=== PATIENT | female | born 1955 | race Caucasian/White ===

== ENCOUNTER 2016-11-19 09:37 | Outpatient (CLI) | payer BC, OTHER | END 2016-11-19 23:59 | DX: E55.9 Vitamin D deficiency, unspecified (principal); E11.9 Type 2 diabetes mellitus without complications; E03.9 Hypothyroidism, unspecified; E78.5 Hyperlipidemia, unspecified ==

== ENCOUNTER 2017-02-18 10:22 | Outpatient (CLI) | payer BC ==
--- NOTE | 2017-02-19 12:41 | Mammography Report ---
DIGITAL SCREENING MAMMOGRAM: 02/18/2017 CLINICAL INDICATION: A 61-year-old with history of late childbearing for screening. COMPARISON: 04/2015, 08/2012, 05/2011, 07/2009, 06/2009, 03/2008, 02/2007 TECHNIQUE: Routine CC and MLO projections were obtained of the breasts. FINDINGS: The breasts again demonstrate scattered fibroglandular parenchyma bilaterally. Asymmetric parenchyma in the left axillary tail is stable. Coarse and punctate, typically benign calcification s are present. No suspicious masses, clustered microcalcifications, or regions of architectural dist ortion are identified. IMPRESSION: BENIGN FINDINGS. RECOMMENDATION: Routine annual screening unless otherwise clinically indicated. BIRADS CATEGORY 2 - BENIGN FINDINGS. STANDARD QUALIFYING STATEMENTS 1. This examination was reviewed with the aid of Computer-Aided Detection (CAD). 2. A negative or benign imaging report should not delay biopsy if clinically suspicious findings are present. Consider surgical consultation if warranted. More than 5% of cancers are not identified by i maging. 3. Dense breasts may obscure an underlying neoplasm. JOB #: [id number] EXT JOB #:[id number]
== END 2017-02-18 10:23 | disposition home or self-care (01) ==
LOC: DI 10:22
PROVIDERS: ATTEND Family Medicine
DX: Z12.31 Encounter for screening mammogram for malignant neoplasm of breast (principal)
CPT/HCPCS: 77067

== ENCOUNTER 2017-05-07 08:00 | Outpatient (CLI) | payer BC ==
[2017-05-07 13:41] LABS: HEMOGLOBIN A1C 1.13 g/dL
== END 2017-05-07 08:01 | disposition home or self-care (01) ==
LOC: LAB.WCP 08:00
PROVIDERS: ATTEND Family Medicine
DX: E11.9 Type 2 diabetes mellitus without complications (principal); E03.9 Hypothyroidism, unspecified
CPT/HCPCS: 36415; 83036; 84443

== ENCOUNTER 2017-05-22 15:28 | Outpatient (CLI) | payer BC ==
--- NOTE | 2017-05-22 17:13 | XRAY Report ---
TWO-VIEW RIGHT CALCANEUS: 05/22/2017 CLINICAL INDICATION: Pain, edema. FINDINGS: Frontal and lateral views of the right calcaneus demonstrate no evidence of fracture. The joint spaces are preserved. No radiopaque foreign body is seen in the soft tissues. There is a sma ll posterior calcaneal spur present. IMPRESSION: NO EVIDENCE OF FRACTURE. SMALL POSTERIOR CALCANEAL SPUR. JOB #: [id number] EXT JOB #:[id number]
== END 2017-05-22 15:29 | disposition home or self-care (01) ==
LOC: DI 15:28
PROVIDERS: ATTEND Podiatrist
DX: M77.31 Calcaneal spur, right foot (principal)

== ENCOUNTER 2017-07-08 15:03 | Outpatient (CLI) | payer BC ==
--- NOTE | 2017-07-09 10:05 | MRI Report ---
EXAM: RIGHT ANKLE/HINDFOOT MRI WITHOUT CONTRAST EXAM DATE: 07/08/2017 03:42 PM. CLINICAL HISTORY: Right Achilles tendinitis. COMPARISON: None. TECHNIQUE: Multiplanar, multisequence T1-weighted and fluid-sensitive sequences of the ankle/hindfoot without contrast. Other: None. FINDINGS: Bones: No fractures or subluxations. No marrow edema. No bone lesions. Articular Cartilage: Unremarkable. Ligaments: The anterior and posterior tibiofibular, anterior and posterior talofibular, and calcaneof ibular ligaments are intact. The deep and superficial deltoid and spring ligaments are intact. Anterior Tendons: The tibialis anterior, extensor hallucis longus, and extensor digitorum longus tend ons are unremarkable. Medial Tendons: The tibialis posterior, flexor digitorum longus, and flexor hallucis longus tendons a re unremarkable. Lateral Tendons: The peroneus brevis and longus are unremarkable. Achilles Tendon: Mild mid to distal Achilles tendinosis. No tear. Musculature: No edema or fatty atrophy. Other: No abnormal joint effusions. Trace amount of fluid at the retrocalcaneal bursa. The contents o f the sinus tarsi and tarsal tunnel are unremarkable. No plantar fasciitis. The subcutaneous tissues are unremarkable. IMPRESSION: 1. Mild mid to distal Achilles tendinosis. 2. Trace amount of fluid at the retrocalcaneal bursa. [facility] MUSCULOSKELETAL RADIOLOGY SECTION Referring Provider Line: [phone] SITE ID: [id number]
== END 2017-07-08 15:04 | disposition home or self-care (01) ==
LOC: DI 15:03
PROVIDERS: ATTEND Podiatrist
DX: M76.61 Achilles tendinitis, right leg (principal)

== ENCOUNTER 2017-08-03 09:52 | Outpatient (CLI) | payer BC ==
[2017-08-03 14:16] LABS: HEMOGLOBIN A1C 0.79 g/dL
== END 2017-08-03 09:53 | disposition home or self-care (01) ==
LOC: LAB.WCP 09:52
PROVIDERS: ATTEND Family Medicine
DX: E11.9 Type 2 diabetes mellitus without complications (principal); E03.9 Hypothyroidism, unspecified
CPT/HCPCS: 36415; 83036; 84443

== ENCOUNTER 2017-11-09 09:39 | Outpatient (CLI) | payer BC ==
[2017-11-09 13:09] LABS: CREATININE 0.8 mg/dL (0.4-1.0)
[2017-11-09 13:20] LABS: HB2 TOTAL 15.4 g/dL; HEMOGLOBIN A1C 1.15 g/dL
== END 2017-11-09 09:40 | disposition home or self-care (01) ==
LOC: LAB.WCP 09:39
PROVIDERS: ATTEND Family Medicine
DX: E11.9 Type 2 diabetes mellitus without complications (principal); E03.9 Hypothyroidism, unspecified
CPT/HCPCS: 36415; 80048; 83036; 84443

== ENCOUNTER 2018-01-11 20:10 | Emergency (ER) | payer BC ==
--- NOTE | 2018-01-11 22:13 | XRAY Preliminary Report ---
Exam: XR ANKLE 3 VIEW RT IMPRESSION: Postsurgical changes in the posterior soft tissues of the ankle and the region of the Ach illes as well as post surgical changes of the calcaneus without evidence of complication. [facility] SITE ID: [id number]
--- NOTE | 2018-01-11 22:23 | XRAY Report ---
EXAM: RIGHT ANKLE RADIOGRAPHY EXAM DATE: 01/11/2018 09:32 PM. CLINICAL HISTORY: Mild ankle trauma post surgery. COMPARISON: MR ankle without contrast 07/08/2017 calcaneus radiograph 05/22/2017. TECHNIQUE: 3 views. FINDINGS: Overlying material obscures fine bony detail. Bones: No displaced fracture. No suspicious focal osseous lesion with increased sclerosis in the maxine ining posterior portion of the calcaneus including the tuberosity, though this may be artifactual due to overlying splint. Postsurgical changes are present at these superior posterior calcaneus. Joints: No joint effusion. No malalignment. Soft Tissues: Postsurgical changes with sutures versus wires present left and right parasagittal post erior ankle in the region of the Achilles tendon. No unexpected retained radiopaque foreign body. IMPRESSION: Postsurgical changes in the posterior soft tissues of the ankle in the region of the Achi lles as well as post surgical changes of the calcaneus without evidence of complication. [facility] Referring Provider Line: [phone] SITE ID: [id number]
[2018-01-11] MEDS ORDERED: oxyCOD/ACETAMIN 5 MG/325 MG TABLET PO STA (22:53)
--- NOTE | 2018-01-11 22:57 | ED Physician Documentation ---
PD HPI LOWER EXT INJURY - Stated complaint Stated Complaint: R ANKLE PX/POST SURG - Chief complaint Chief Complaint: Ext Problem - History obtained from History obtained from: Patient, Family - History of Present Illness PD HPI LOW EXT INJURY LOCATION: Right, Ankle Type of injury: Fall, Twist Where injury occurred: Home Timing - onset: Today Timing - details: Abrupt onset Improved by: Rest, Immobilization Worsened by: Moving, Palpating Similar symptoms before: Work up / diagnostics, Treatment Recently seen: Surgery - Additional information Additional information: patient is a 62 year old female presenting to the emergency department for right sided ankle pain. Patient recently had surgery on her ankle. Today patient tripped on a vaccum in her house hurting her ankle. patient is in a cast so couldn't really observe the ankle. 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 HEENT: Other - Present Medications Home Medications: Ambulatory Orders Medication Instructions Recorded Confirmed Levothyroxine [Synthroid] 50 mcg ORAL DAILY 11/22/14 11/22/14 Insulin Glargine/Lixisenatide 50 units SQ DAILY 01/11/18 01/11/18 [Soliqua 100 Unit-33 Mcg/ml Pen] - Allergies Allergies/Adverse Reactions: Allergies Allergy/AdvReac Type Severity Reaction Status Date / Time azathioprine Allergy Hives Verified 01/11/18 20:30 choline fenofibrate * Allergy Hives Verified 01/11/18 20:30 [From Trilipix] ezetimibe [From Zetia] Allergy Hives Verified 01/11/18 20:30 glipizide Allergy Hives Verified 01/11/18 20:30 leflunomide Allergy Hives Verified 01/11/18 20:30 lisinopril Allergy Hives Verified 01/11/18 20:30 losartan [Losartan] Allergy Hives Verified 01/11/18 20:30 metformin Allergy Hives Verified 01/11/18 20:30 niacin Allergy Hives Verified 01/11/18 20:30 pitavastatin calcium * Allergy Hives Verified 01/11/18 20:30 [From Livalo] Ylirkab-Tce-Jaa Reductase Allergy Hives Verified 01/11/18 20:30 Inhibitor Sulfa (Sulfonamide Allergy Hives Verified 01/11/18 20:30 Antibiotics) zolpidem tartrate * Allergy Hives Verified 01/11/18 20:30 [From Ambien] - Social History Does the pt smoke?: No Smoking Status: Never smoker Does the pt drink ETOH?: No Does the pt have substance abuse?: Yes Substance Use and Type: Marijuana - Immunizations Immunizations are current?: Yes - POLST Patient has POLST: No PD ED PE NORMAL - Vitals Vital signs reviewed: Yes - General General: Alert and oriented X 3 - HEENT HEENT: Atraumatic - Cardiac Cardiac: RRR - Respiratory Respiratory: No respiratory distress - Abdomen Abdomen: Non distended - Neuro Neuro: Alert and oriented X 3 Eye Opening: Spontaneous PD ED PE EXPANDED - General General: Alert, In Pain - Extremities Extremities: Motor intact, Sensory intact, Vascular intact. No: Decreased/ absent pulse Results - Vitals Vitals: Vital Signs - 24 hr 01/11/18 01/11/18 01/11/18 20:20 21:13 23:36 Temperature 36.6 C Heart Rate 96 69 88 Respiratory 17 20 16 Rate Blood Pressure 146/77 H 146/74 H 139/86 H O2 Saturation 99 97 95 Oxygen O2 Source Room air - Rads (name of study) x-ray, ankle Radiology: Final report received (post operative changes, no acute displacement) PD MEDICAL DECISION MAKING - ED course Complexity details: reviewed old records, reviewed results, re-evaluated patient , considered differential, d/w patient, d/w family ED course: patient was seen and examined at bedside. Imaging was ordered. When patient returned from imaging the laura bandages were taken off the but the cast could not be removed. Pulses were present, and patient was neurovascularly intact. Patient had no acute fracture or dislocation. patient was treated with percocet for pain and was stable for discharge with outpatient follow up. Departure - Departure Disposition: 01 Home, Self Care Clinical Impression: Acute ankle pain Condition: Good Instructions: Pain Management Post Surg Follow-Up: primary,care provider [Other] - Within 3 Days Comments: Your x-rays today showed no acute abnormalities. You should elevate your foot and continue with your pain management. You should call your ankle doctor tomorrow to schedule a follow up appointment. You may return to the emergency department at any time for new, worsening or uncontrollable symptoms. Discharge Date/Time: 01/11/18 23:36
[2018-01-11 23:37] VITALS: BP 139/86
== END 2018-01-11 23:36 | disposition home or self-care (01) ==
LOC: ED 20:10
DX: M25.571 Pain in right ankle and joints of right foot (principal); Z98.890 Other specified postprocedural states; Z91.81 History of falling; E03.9 Hypothyroidism, unspecified; E78.00 Pure hypercholesterolemia, unspecified; E11.9 Type 2 diabetes mellitus without complications; Z79.4 Long term (current) use of insulin
CPT/HCPCS: 73610; 99283; A9270

== ENCOUNTER 2018-01-26 08:00 | Outpatient (CLI) | payer BC ==
[2018-01-26 13:15] LABS: ALBUMIN 4.3 g/dL (3.2-5.5); ALBUMIN/GLOBULIN RATIO 1.3 (1.0-2.2); ALKALINE PHOSPHATASE 81 IU/L (42-121); ALT ALANINE AMINOTRANSFERASE 22 IU/L (10-60); AST ASPARTATE AMINOTRANSFERASE 20 IU/L (10-42); BILIRUBIN,TOTAL 0.5 mg/dL (0.2-1.0); BUN - BLOOD UREA NITROGEN 15 mg/dL (6-20); CALCIUM 9.3 mg/dL (8.5-10.3); CARBON DIOXIDE - CO2 23 mmol/L (21-32); CHLORIDE 102 mmol/L (101-111); CREATININE 0.8 mg/dL (0.4-1.0); GFR - MDRD 73 (>89); GLUCOSE 150 mg/dL (70-100); SODIUM 134 mmol/L (135-145); TOTAL PROTEIN 7.7 g/dL (6.7-8.2)
[2018-01-26 19:47] LABS: HB2 TOTAL 16.3 g/dL; HEMOGLOBIN A1C 0.97 g/dL; HEMOGLOBIN A1C % 7.6 % (4.6-6.2)
== END 2018-01-26 08:01 | disposition home or self-care (01) ==
LOC: LAB.WCP 08:00
PROVIDERS: ATTEND Family Medicine
DX: E11.9 Type 2 diabetes mellitus without complications (principal); E03.9 Hypothyroidism, unspecified
CPT/HCPCS: 36415; 80053; 83036; 84443

== ENCOUNTER 2018-07-29 14:47 | Outpatient (CLI) | payer BC ==
--- NOTE | 2018-07-30 09:13 | DEXA Report ---
Reason: POSTMENOPAUSAL STATUS Procedure Date: 07/29/2018 Accession Number: [id number] / [id number] Procedure: DEX - Dexa Spine and/or Hip CPT Code: FULL RESULT: EXAM: Dexa Spine and/or Hip DATE: 07/29/2018 3:19 PM CLINICAL HISTORY: POSTMENOPAUSAL STATUS TECHNIQUE: Dual energy x-ray absorptiometry (DXA) was performed on a [employer] System. Regions measured are the AP Spine, femoral neck, and if needed forearm. COMPARISON: None. In accordance with the International Society for Clinical Densitometry (ISCD) guidelines, data from previous exams may be reanalyzed using current recommendations and techniques. This is done to allow a more accurate basis for comparison with the current study. FINDINGS: The data for the lumbar spine is as follows: BMD (g/cm/cm) T-SCORE Z-SCORE REGION L1 1.445 2.6 3.0 L2 1.595 3.3 3.7 L3 1.733 4.4 4.8 L4 1.606 3.4 3.7 TOTAL 1.602 3.5 3.9 NOTE: All evaluable vertebrae are used for classification The data for the hip is as follows: BMD (g/cm/cm) T-SCORE Z-SCORE REGION Neck 1.173 1.0 1.7 TOTAL 1.237 1.8 2.1 NOTE: The femoral neck or total proximal femur, whichever is lowest, is used for classification. IMPRESSION: THE WHO CLASSIFICATION BASED ON THE INTERNATIONAL REFERENCE STANDARD IS NORMAL. THE FRACTURE RISK IS NOT INCREASED. RECOMMENDATION: Patients with diagnosis of osteoporosis or osteopenia should have regular bone mineral density assessment. For those eligible for Medicare, routine testing is allowed once every 2 years. Testing frequency can be increased for patients who have rapidly progressing disease or for those who are receiving medical therapy to restore bone mass. COMMENT: World Health Organization (WHO) definitions for osteoporosis and osteopenia: NORMAL BMD: T-score at -1.0 or higher, fracture risk is low OSTEOPENIA BMD: T-score between -1.0 and -2.5, fracture risk is increased. OSTEOPOROSIS BMD: T-score at -2.5 or lower, fracture risk is high. National Osteoporosis Foundation recommends: 1. Obtain adequate dietary calcium (at least 1200 mg per day) and vitamin D (400-800 international units per day). 2. Participate, as appropriate, in regular weightbearing and muscle-strengthening exercise. 3. Avoid tobacco use and reduce alcohol and caffeine intake. 4. For more detailed information see the website at www.NOF.org.
== END 2018-07-29 14:48 | disposition home or self-care (01) ==
LOC: DI 14:47
PROVIDERS: ATTEND Family Medicine
DX: Z78.0 Asymptomatic menopausal state (principal)
CPT/HCPCS: 77080

== ENCOUNTER 2018-08-09 21:05 | Outpatient (CLI) | payer BC ==
--- NOTE | 2018-08-09 22:41 | Ultrasound Report ---
Reason: ABDOMINAL PAIN,RT UPPER QUAD Procedure Date: 08/09/2018 Accession Number: [id number] / [id number] Procedure: US - Abdomen Complete CPT Code: FULL RESULT: EXAM: ABDOMEN ULTRASOUND. EXAM DATE: 08/09/2018 09:50 PM. CLINICAL HISTORY: Right upper quadrant abdominal pain. COMPARISON: None. TECHNIQUE: Real-time scanning was performed with static images obtained. FINDINGS: Liver: Moderate increased liver echogenicity. No suspicious focal liver lesion noted. Liver measures 18.9 cm. Main portal vein flow: Hepatopetal. Gallbladder: No gallstones, wall thickening, or sonographic Cortés's sign. Biliary System: Common bile duct measures 5.5 mm. No intrahepatic or extrahepatic ductal dilatation. Pancreas: Visualized portion is unremarkable. Kidneys: Right: 9.2 cm longitudinally. Lower pole of the right kidney obscured by bowel gas. No contour-deforming mass, stones, or hydronephrosis. Left: 11.7 cm longitudinally. Normal. No contour-deforming mass, stones, or hydronephrosis. Spleen: 11.9 cm. Heterogeneous appearance of the spleen. Aorta and Inferior Vena Cava: Unremarkable. Other: None. IMPRESSION: 1. No gallstones, cholecystitis, or biliary ductal dilation. 2. Moderate hepatic steatosis and hepatomegaly. 3. No kidney stone or hydronephrosis demonstrated at this time. [facility]
== END 2018-08-09 21:06 | disposition home or self-care (01) ==
LOC: DI 21:05
PROVIDERS: ATTEND Family Medicine
DX: K76.0 Fatty (change of) liver, not elsewhere classified (principal); R10.11 Right upper quadrant pain
CPT/HCPCS: 76700

== ENCOUNTER 2018-08-23 08:55 | Outpatient (CLI) | payer BC ==
--- NOTE | 2018-08-25 09:20 | Mammography Report ---
Reason: SCREENING MAMMO Procedure Date: 08/23/2018 Accession Number: [id number] / [id number] Procedure: TYSHAWN - Screening Mammo w/Drew CPT Code: FULL RESULT: EXAM: Screening Mammo w/Drew DATE: 08/23/2018 9:29 AM CLINICAL HISTORY: Screening encounter. History of late childbearing. History of mole removal from the right breast. TECHNIQUE: Bilateral CC and MLO views were obtained. A left laterally exaggerated CC view was obtained. COMPARISON: 02/18/2017 through 09/30/2013. FINDINGS: The breasts demonstrate scattered fibroglandular densities bilaterally. There are bilateral coarse typically benign calcifications. No suspicious masses, clustered microcalcifications, or regions of architectural distortion are identified. IMPRESSION: Benign findings RECOMMENDATION: Routine annual screening unless otherwise clinically indicated. BIRADS CATEGORY 2: Benign findings STANDARD QUALIFYING STATEMENTS: 1. This examination was not reviewed with the aid of Computer-Aided Detection (CAD). 2. A negative or benign imaging report should not preclude biopsy if clinically suspicious findings are present. 3. Dense breasts may obscure an underlying neoplasm. 4. This examination was reviewed with the aid of 3D breast imaging (tomosynthesis).
== END 2018-08-23 08:56 | disposition home or self-care (01) ==
LOC: DI 08:55
DX: Z12.31 Encounter for screening mammogram for malignant neoplasm of breast (principal)
CPT/HCPCS: 77063; 77067

== ENCOUNTER 2019-04-07 17:48 | Emergency (ER) | payer BC ==
[2019-04-07] MEDS ORDERED: SODIUM CHLORIDE 0.9% 1,000 ML IV ONE (18:21)
--- NOTE | 2019-04-07 18:22 | ED Physician Documentation ---
PD HPI CHEST PAIN - Stated complaint Stated Complaint: CRAZY HEART BEAT - History obtained from History obtained from: Patient - History of Present Illness Timing - onset: Other (63-year-old woman with history of hypothyroidism and type 2 diabetes on insulin presents with worsening palpitations that have been going on for a few months. She had a Holter monitor for 2 days showing PVCs. She describes her palpitations as an uncomfortable chest pressure followed by a missing beat. Sometimes she gets short of breath with them. She is never passed out. 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 HEENT: Other - Present Medications Home Medications: Ambulatory Orders Medication Instructions Recorded Confirmed Cetirizine [ZyrTEC] 10 mg PO DAILY 02/11/18 02/11/18 Cholecalciferol (Vitamin D3) 5,000 units PO DAILY 02/11/18 02/11/18 [Vitamin D3] Insulin Glargine/Lixisenatide 50 units SUBQ QDBREAKFAST 02/11/18 02/11/18 [Soliqua 100 Unit-33 Mcg/ml Pen] Insulin Lispro [Humalog] 15 units SUBQ DAILY PM 02/11/18 02/11/18 L.acid/L.casei/B.bif/B.mani/Fos 1 cap PO DAILY 02/11/18 02/11/18 [Probiotic Blend Capsule] Levothyroxine Sodium [Synthroid] 50 mcg PO DAILY 02/11/18 02/11/18 Metoprolol Tartrate 25 mg PO BID #60 tablet 04/07/19 - Allergies Allergies/Adverse Reactions: Allergies Allergy/AdvReac Type Severity Reaction Status Date / Time azathioprine Allergy Hives Verified 01/11/18 20:30 choline fenofibrate * Allergy Hives Verified 01/11/18 20:30 [From Trilipix] ezetimibe [From Zetia] Allergy Hives Verified 01/11/18 20:30 glipizide Allergy Hives Verified 01/11/18 20:30 leflunomide Allergy Hives Verified 01/11/18 20:30 lisinopril Allergy Hives Verified 01/11/18 20:30 losartan [Losartan] Allergy Hives Verified 01/11/18 20:30 metformin Allergy Hives Verified 01/11/18 20:30 niacin Allergy Hives Verified 01/11/18 20:30 oxycodone Allergy Anaphylaxis Verified 02/11/18 10:16 pitavastatin calcium * Allergy Hives Verified 01/11/18 20:30 [From Livalo] Yzqxhwq-Iwo-Nlf Reductase Allergy Hives Verified 01/11/18 20:30 Inhibitor Sulfa (Sulfonamide Allergy Hives Verified 01/11/18 20:30 Antibiotics) zolpidem tartrate * Allergy Hives Verified 01/11/18 20:30 [From Ambien] - Social History Does the pt smoke?: No Smoking Status: Never smoker Does the pt drink ETOH?: No Does the pt have substance abuse?: Yes - Immunizations Immunizations are current?: Yes - POLST Patient has POLST: No PD ED PE NORMAL - Vitals Vital signs reviewed: Yes - General General: Alert and oriented X 3, No acute distress - HEENT HEENT: PERRL, EOMI - Neck Neck: Supple, no meningeal sign, No bony TTP - Cardiac Cardiac: RRR, No murmur - Respiratory Respiratory: No respiratory distress, Clear bilaterally - Abdomen Abdomen: Soft, Non tender - Derm Derm: Normal color, Warm and dry - Extremities Extremities: No edema, No calf tenderness / cord - Neuro Neuro: Alert and oriented X 3, Normal speech Results - Vitals Vitals: Vital Signs - 24 hr 04/07/19 17:52 Heart Rate 76 Respiratory 18 Rate Blood Pressure 141/75 H O2 Saturation 96 Oxygen O2 Source Room air - EKG (time done) 1757 Rate: Rate (enter#) (80) Rhythm: NSR (With occasional PACs) [place]: Normal Intervals: RBBB QRS: LVH Ischemia: Normal ST segments Computer interpretation: Agree with computer - Labs Labs: Laboratory Tests 04/07/19 04/07/19 04/07/19 18:39 18:39 18:39 WBC 7.6 RBC 4.32 Hgb 12.8 Hct 37.7 MCV 87.3 MCH 29.6 MCHC 34.0 RDW 11.9 L Plt Count 221 MPV 10.1 Neut # (Auto) 4.5 Lymph # (Auto) 2.1 [place] # (Auto) 0.7 Eos # (Auto) 0.2 Baso # (Auto) 0.0 Absolute Nucleated RBC 0.00 Nucleated RBC % 0.0 Sodium 140 Potassium 3.5 Chloride 104 Carbon Dioxide 24 Anion Gap 12.0 BUN 22 H Creatinine 0.8 Estimated GFR (MDRD) 73 L Glucose 101 H POC Whole Bld Glucose Calcium 9.6 Magnesium 1.9 Total Bilirubin 0.4 AST 24 ALT 29 Alkaline Phosphatase 79 Troponin I High Sens 5.6 Total Protein 7.3 Albumin 4.2 Globulin 3.1 Albumin/Globulin Ratio 1.4 Lipase 41 04/07/19 19:17 WBC RBC Hgb Hct MCV MCH MCHC RDW Plt Count MPV Neut # (Auto) Lymph # (Auto) [place] # (Auto) Eos # (Auto) Baso # (Auto) Absolute Nucleated RBC Nucleated RBC % Sodium Potassium Chloride Carbon Dioxide Anion Gap BUN Creatinine Estimated GFR (MDRD) Glucose POC Whole Bld Glucose 84 Calcium Magnesium Total Bilirubin AST ALT Alkaline Phosphatase Troponin I High Sens Total Protein Albumin Globulin Albumin/Globulin Ratio Lipase PD MEDICAL DECISION MAKING - ED course ED course: She has occasional PACs on the monitor which correspond temporally and exactly with her symptoms. This is a 63-year-old woman presents with subacute but worsening palpitations, correlating with PVCs and PACs on telemetry monitoring. She is mildly dehydrated with prerenal azotemia and was administered IV fluids here. She is started on a low-dose beta-scott pending PCP and cardiology follow-up. Departure - Departure Disposition: 01 Home, Self Care Clinical Impression: PAC (premature atrial contraction) Condition: Good Record reviewed to determine appropriate education?: Yes Instructions: ED Palpitations Prescriptions: Metoprolol Tartrate 25 mg PO BID #60 tablet Comments: Follow-up with the wrist hemmer as scheduled. Return for new worsening symptoms. Take the copy of the labs and EKG with you to that appointment.
[2019-04-07 18:48] LABS: BASOPHILS % (AUTO) 0.3 %; EOSINOPHILS # (AUTO) 0.2 10^3/uL (0.0-0.7); EOSINOPHILS % (AUTO) 2.2 %; HGB - HEMOGLOBIN 12.8 g/dL (12.0-16.0); LYMPHOCYTES # (AUTO) 2.1 10^3/uL (1.5-3.5); MEAN CORPUSCULAR HEMOGLOBIN 29.6 pg (27.0-31.0); MEAN CORPUSCULAR VOLUME 87.3 fL (81.0-99.0); MEAN PLATELET VOLUME 10.1 fL (7.9-10.8); MONOCYTES # (AUTO) 0.7 10^3/uL (0.0-1.0); MONOCYTES % (AUTO) 9.1 %; NEUTROPHILS # (AUTO) 4.5 10^3/uL (1.5-6.6); NEUTROPHILS % (AUTO) 59.9 %; PLT - PLATELET COUNT 221 10^3/uL (130-450); RED BLOOD COUNT 4.32 10^6/uL (4.20-5.40); RED CELL DISTRIBUTION WIDTH 11.9 % (12.0-15.0); WHITE BLOOD COUNT 7.6 x10^3/uL (4.8-10.8)
[2019-04-07 19:11] LABS: ALBUMIN 4.2 g/dL (3.2-5.5); ALBUMIN/GLOBULIN RATIO 1.4 (1.0-2.2); BILIRUBIN,TOTAL 0.4 mg/dL (0.2-1.0); CALCIUM 9.6 mg/dL (8.5-10.3); CREATININE 0.8 mg/dL (0.4-1.0); MAGNESIUM 1.9 mg/dL (1.7-2.8); TOTAL PROTEIN 7.3 g/dL (6.7-8.2)
[2019-04-07] MEDS ORDERED: METOPROLOL TARTRATE 50 MG TABLET PO STA (19:29)
[2019-04-07 19:36] VITALS: BP 173/81
== END 2019-04-07 20:10 | disposition home or self-care (01) ==
LOC: ED 17:48
DX: I49.1 Atrial premature depolarization (principal); E11.9 Type 2 diabetes mellitus without complications; Z79.4 Long term (current) use of insulin
CPT/HCPCS: 36415; 80053; 83690; 83735; 84484; 85025; 99284; A9270

== ENCOUNTER 2019-11-10 16:04 | Emergency (ER) | payer BC ==
[2019-11-10] MEDS ORDERED: DILTIAZEM 50 MG/10 ML VIAL IVP ONE (16:23)
[2019-11-10] MEDS ORDERED: SODIUM CHLORIDE 0.9% 1,000 ML IV ONE ×2 (16:27)
[2019-11-10] MEDS ORDERED: diltiaZEM INJ 5 MG/ML VIAL IVP STA (16:27)
--- NOTE | 2019-11-10 16:27 | ED Physician Documentation ---
History of Present Illness - Stated complaint Stated Complaint: [facility] - [facility]FERRAL - Chief complaint Chief Complaint: Cardiac - History obtained from History obtained from: Patient - History of Present Illness Timing: Today Pain level max: 0 Pain level now: 0 - Additonal information Additional information: 64-year-old female presents to the emergency department palpitations today. Complains of feeling like her heart is racing. She is on metoprolol at home. Has had PVCs in the past, but states nothing like this. No chest pain. No shortness of breath. Nothing makes it better or worse. Review of Systems Ten Systems: 10 systems reviewed and negative Constitutional: denies: Fever, Chills Ears: denies: Ear pain Nose: denies: Rhinorrhea / runny nose, Congestion Throat: denies: Sore throat Cardiac: reports: Palpitations. 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, Hysterectomy HEENT: Other - Present Medications Home Medications: Ambulatory Orders Medication Instructions Recorded Confirmed Cetirizine [ZyrTEC] 10 mg PO DAILY 02/11/18 02/11/18 Cholecalciferol (Vitamin D3) 5,000 units PO DAILY 02/11/18 02/11/18 [Vitamin D3] Insulin Glargine/Lixisenatide 50 units SUBQ QDBREAKFAST 02/11/18 02/11/18 [Soliqua 100 Unit-33 Mcg/ml Pen] Insulin Lispro [Humalog] 15 units SUBQ DAILY PM 02/11/18 02/11/18 L.acid/L.casei/B.bif/B.mani/Fos 1 cap PO DAILY 02/11/18 02/11/18 [Probiotic Blend Capsule] Magnesium Oxide [Magnesium Oxide 240 mg PO 11/10/19 11/10/19 400] Metoprolol Tartrate 50 mg PO BID 11/10/19 - Allergies Allergies/Adverse Reactions: Allergies Allergy/AdvReac Type Severity Reaction Status Date / Time azathioprine Allergy Hives Verified 11/10/19 16:22 cefuroxime [From Ceftin] Allergy Unknown Verified 11/10/19 16:22 choline fenofibrate * Allergy Hives Verified 11/10/19 16:22 [From Trilipix] ezetimibe [From Zetia] Allergy Hives Verified 11/10/19 16:22 fluticasone [From Flonase] Allergy Unknown Verified 11/10/19 16:22 glipizide Allergy Hives Verified 11/10/19 16:22 leflunomide Allergy Hives Verified 11/10/19 16:22 lisinopril Allergy Hives Verified 11/10/19 16:22 losartan [Losartan] Allergy Hives Verified 11/10/19 16:22 metformin Allergy Hives Verified 11/10/19 16:22 niacin Allergy Hives Verified 11/10/19 16:22 oxycodone Allergy Anaphylaxis Verified 11/10/19 16:22 pitavastatin calcium * Allergy Hives Verified 11/10/19 16:22 [From Livalo] Exqlpxj-Kdx-Ztk Reductase Allergy Hives Verified 11/10/19 16:22 Inhibitor Sulfa (Sulfonamide Allergy Hives Verified 11/10/19 16:22 Antibiotics) zolpidem tartrate * Allergy Hives Verified 11/10/19 16:22 [From Ambien] - Social History Does the pt smoke?: No Smoking Status: Never smoker Does the pt drink ETOH?: No Does the pt have substance abuse?: Yes - Immunizations Immunizations are current?: Yes - POLST Patient has POLST: No PD ED PE NORMAL - Vitals Vital signs reviewed: Yes - General General: Alert and oriented X 3, No acute distress - HEENT HEENT: Moist mucous membranes - Neck Neck: Supple, no meningeal sign - Cardiac Cardiac: Other (Tachycardic) - Respiratory Respiratory: No respiratory distress, Clear bilaterally - Abdomen Abdomen: Soft, Non tender, Non distended - Derm Derm: Warm and dry - Extremities Extremities: No edema, No calf tenderness / cord - Neuro Neuro: Alert and oriented X 3 Results - Vitals Vitals: Vital Signs - 24 hr 03/19/20 03/19/20 03/19/20 16:07 16:10 16:15 Temperature 37.3 C Heart Rate 171 H 176 H 153 H Respiratory 18 16 28 H Rate Blood Pressure 165/115 H 150/115 H 159/96 H O2 Saturation 98 100 100 11/10/19 11/10/19 11/10/19 16:45 17:04 17:30 Temperature Heart Rate 146 H 118 H 130 H Respiratory 24 20 24 Rate Blood Pressure 195/64 H 167/90 H 150/90 H O2 Saturation 100 94 100 11/10/19 17:43 Temperature Heart Rate 106 H Respiratory 18 Rate Blood Pressure 130/76 O2 Saturation Oxygen O2 Source Room air - EKG (time done) 1608 Rate: Rate (enter#) (144) Rhythm: Other (wide complex tachycardia) [place]: Anterior hemiblock (LAFB) Intervals: RBBB 1846 Rate: Rate (enter#) (130) Rhythm: Sinus tachycardia [place]: Normal Intervals: Normal [place], RBBB QRS: LVH Computer interpretation: Agree with computer - Labs Labs: Laboratory Tests 11/10/19 11/10/19 11/10/19 16:19 16:19 16:19 WBC 7.7 RBC 4.98 Hgb 14.6 Hct 41.0 MCV 82.3 MCH 29.3 MCHC 35.6 RDW 11.7 L Plt Count 284 MPV 10.2 Neut # (Auto) 3.8 Lymph # (Auto) 2.7 [place] # (Auto) 0.8 Eos # (Auto) 0.2 Baso # (Auto) 0.0 Absolute Nucleated RBC 0.00 Nucleated RBC % 0.0 Sodium 138 Potassium 3.7 Chloride 102 Carbon Dioxide 24 Anion Gap 12.0 BUN 11 Creatinine 0.6 Estimated GFR (MDRD) 101 Glucose 140 H Calcium 9.6 Total Bilirubin 0.4 AST 41 ALT 58 Alkaline Phosphatase 112 Total Protein 7.5 Albumin 4.1 Globulin 3.4 Albumin/Globulin Ratio 1.2 Lipase 61 H TSH < 0.08 L PD MEDICAL DECISION MAKING - ED course Complexity details: reviewed old records, reviewed results, re-evaluated patient, considered differential, d/w patient ED course: Patient presents to the emergency department with atrial fibrillation with rapid ventricular response. Diltiazem did help to control her rate, however her rate quickly spiked back up after approximately 20 minutes. She was started on a procainamide drip but she felt herself go into A. fib today, this converted her back into a sinus tachycardia. She feels much better. She is currently asymptomatic though mildly tachycardic. She states that she used to be hypothyroid and was on Synthroid, but recently they took her off of that. Possible that this is contributing as well. TSH level is undetectable. Free T4 will be sent off and we will have her follow-up with her doctor for this and adjustment of her medications. No chest pain. She sees Dr. Womack from cardiology. Patient counseled regarding signs and symptoms for which I believe and urgent re-evaluation would be necessary. Patient with good understanding of and agreement to plan and is comfortable going home at this time This document was made in part using voice recognition software. While efforts are made to proofread this document, sound alike and grammatical errors may occur. Departure - Departure Disposition: 01 Home, Self Care Clinical Impression: Sinus tachycardia Atrial fibrillation Qualifiers: Atrial fibrillation type: unspecified Qualified Code(s): I48.91 - Unspecified atrial fibrillation Condition: Good Instructions: ED Afib Follow-Up: Anne Marie Suarez PA [Provider Admit Priv/Credential] - Tomorrow Devendra Womack MD [Primary Care Provider] - Within 1 week Comments: Continue your medications at home. Call RADHA Suarez tomorrow for your free T4 results and to discuss what you should do about your thyroid. Return if you worsen. You were found to be in atrial fibrillation with rapid ventricular response today.
[2019-11-10 16:36] LABS: BASOPHILS % (AUTO) 0.5 %; EOSINOPHILS # (AUTO) 0.2 10^3/uL (0.0-0.7); EOSINOPHILS % (AUTO) 3.1 %; HGB - HEMOGLOBIN 14.6 g/dL (12.0-16.0); LYMPHOCYTES # (AUTO) 2.7 10^3/uL (1.5-3.5); LYMPHOCYTES % (AUTO) 35.5 %; MEAN CORPUSCULAR HEMOGLOBIN 29.3 pg (27.0-31.0); MEAN CORPUSCULAR HGB CONC 35.6 g/dL (32.0-36.0); MEAN CORPUSCULAR VOLUME 82.3 fL (81.0-99.0); MEAN PLATELET VOLUME 10.2 fL (7.9-10.8); MONOCYTES # (AUTO) 0.8 10^3/uL (0.0-1.0); MONOCYTES % (AUTO) 10.6 %; NEUTROPHILS # (AUTO) 3.8 10^3/uL (1.5-6.6); NEUTROPHILS % (AUTO) 49.9 %; PLT - PLATELET COUNT 284 10^3/uL (130-450); RED BLOOD COUNT 4.98 10^6/uL (4.20-5.40); RED CELL DISTRIBUTION WIDTH 11.7 % (12.0-15.0); WHITE BLOOD COUNT 7.7 x10^3/uL (4.8-10.8)
[2019-11-10 16:49] LABS: ALBUMIN 4.1 g/dL (3.2-5.5); ALBUMIN/GLOBULIN RATIO 1.2 (1.0-2.2); BILIRUBIN,TOTAL 0.4 mg/dL (0.2-1.0); CALCIUM 9.6 mg/dL (8.5-10.3); CREATININE 0.6 mg/dL (0.4-1.0); TOTAL PROTEIN 7.5 g/dL (6.7-8.2)
[2019-11-10] MEDS ORDERED: PROCAINAMIDE 1,000 MG in SODIUM CHLORIDE 0.9% 240 ML IV STA (16:59)
[2019-11-10] MEDS ORDERED: diltiaZEM INJ 125 MG in DEXTROSE 5% 100 ML IV STA (17:16)
[2019-11-10 18:59] VITALS: BP 146/88
== END 2019-11-10 18:59 | disposition home or self-care (01) ==
LOC: ED 16:04
DX: I48.91 Unspecified atrial fibrillation (principal); R00.0 Tachycardia, unspecified; E11.9 Type 2 diabetes mellitus without complications; Z79.4 Long term (current) use of insulin
CPT/HCPCS: 36415; 83690; 84439; 93005; 96361; 96365; 96375; 99284; 99285; J2690; 80053; 84443; 85025

== ENCOUNTER 2020-08-08 08:00 | Outpatient (CLI) | payer BC ==
[2020-08-08 12:59] LABS: BILIRUBIN,URINE NEGATIVE (NEGATIVE); GLUCOSE, URINE (UA) NEGATIVE (NEGATIVE); KETONES,URINE (UA) NEGATIVE (NEGATIVE); LEUKOCYTE ESTERASE, URINE TRACE (NEGATIVE); NITRITE,URINE NEGATIVE (NEGATIVE); OCCULT BLOOD,URINE NEGATIVE (NEGATIVE); PROTEIN,URINE NEGATIVE (NEGATIVE); UROBILINOGEN,URINE 0.2 (NORMAL) E.U./dL (NORMAL)
[2020-08-08 13:11] LABS: BACTERIA,URINE None Seen /HPF (None Seen); CLARITY,URINE CLEAR (CLEAR); RBC,URINE None Seen /HPF (0-5); SQUAMOUS EPITHELIAL CELL,UR MOD Squamous (<= Few)
== END 2020-08-08 23:59 | disposition home or self-care (01) ==
LOC: LAB.R 08:00
PROVIDERS: ATTEND Family Medicine
DX: R35.0 Frequency of micturition (principal); R30.0 Dysuria
CPT/HCPCS: 81001; 87086

== ENCOUNTER 2020-09-06 16:27 | Outpatient (CLI) | payer BC | END 2020-09-06 16:28 | disposition home or self-care (01) | LOC: COV 16:27 | PROVIDERS: ATTEND Family Medicine | DX: R43.8 Other disturbances of smell and taste (principal); Z20.822 Contact with and (suspected) exposure to COVID-19 ==

== ENCOUNTER 2020-09-07 09:00 | Outpatient (CLI) | payer BC | END 2020-09-07 23:59 | disposition home or self-care (01) | LOC: COV 09:00 | PROVIDERS: ATTEND Family Medicine | DX: U07.1 COVID-19 (principal) ==

== ENCOUNTER 2020-10-06 10:47 | Outpatient (CLI) | payer BC ==
--- NOTE | 2020-10-10 13:48 | Mammography Report ---
BILATERAL DIGITAL SCREENING MAMMOGRAM 3D/2D: 10/06/2020 CLINICAL: Routine screening. Comparison is made to exams dated: 08/23/2018 mammogram, 02/18/2017 mammogram, 05/15/2015 mammogram, mammogram, and 10/07/2012 mammogram - [facility]. The tissue of both breast s is predominantly fatty. No significant masses, calcifications, or other findings are seen in either breast. There has been no significant interval change. IMPRESSION: NEGATIVE There is no mammographic evidence of malignancy. A 1 year screening mammogram is recommended. This exam was interpreted at Station ID: [id number]. NOTE: For mammograms, a report in lay terms will be sent to the patient. Approximately 15% of breast malignancies will not be visualized mammographically. In the management of a palpable breast mass, a negative mammogram must not discourage biopsy of a clinically suspicious lesion. Electronically Signed By: Michael Thrasher M.D., jr/penrad:10/08/2020 15:34:35 ACR BI-RADS Category 1: Negative 3341F PARENCHYMAL PATTERN: (F) - The breast(s) demonstrate(s) diffuse fatty replacement. BI-RADS CATEGORY: (1) - 1 RECOMMENDATION: (ANNUAL) - Recommend routine annual screening mammography. [id number] 1 year screening LATERALITY: (B)
== END 2020-10-06 10:48 | disposition home or self-care (01) ==
LOC: DI 10:47
PROVIDERS: ATTEND Family Medicine
DX: Z12.31 Encounter for screening mammogram for malignant neoplasm of breast (principal)

== ENCOUNTER 2022-06-04 15:13 | Outpatient (CLI) | payer BC, MEDICARE ==
--- NOTE | 2022-06-05 09:48 | Mammography Report ---
BILATERAL DIGITAL SCREENING MAMMOGRAM 3D/2D: 06/04/2022 CLINICAL: Routine screening. Comparison is made to exams dated: 10/06/2020 mammogram, 08/23/2018 mammogram, 02/18/2017 mammogram, mammogram, and 09/30/2013 mammogram - [facility]. Both breasts are heterogeneously dense, which may obscure small masses (category c / 51-75% glandula r tissue). There are benign diffuse calcifications in both breasts. No significant masses, calcifications, or other findings are seen in either breast. There has been no significant interval change. IMPRESSION: BENIGN There is no mammographic evidence of malignancy. A 1 year screening mammogram is recommended. Based on the Tyrer Cuzick model (a risk assessment model) the patients lifetime risk is 10.8% and he r 10 year risk is 5.9%. According to the ACR, ACS, and NCCN guidelines, an annual breast MRI exam [place] with mammogram is recommended if the patients lifetime risk is 20% or greater. This exam was interpreted at Station ID: [id number]. NOTE: For mammograms, a report in lay terms will be sent to the patient. Approximately 15% of breast malignancies will not be visualized mammographically. In the management of a palpable breast mass, a negative mammogram must not discourage biopsy of a clinically suspicious lesion. Electronically Signed By: Parker montgomery/miguel ángel:06/05/2022 07:55:21 ACR BI-RADS Category 2: Benign Finding(s) 3342F PARENCHYMAL PATTERN: (D) - The breast(s) demonstrate(s) heterogeneously dense fibroglandular parmeeray vito. BI-RADS CATEGORY: (2) - 2 RECOMMENDATION: (ANNUAL) - Recommend routine annual screening mammography. [id number] 1 year screening LATERALITY: (B)
== END 2022-06-04 15:14 | disposition home or self-care (01) ==
LOC: DI 15:13
PROVIDERS: ATTEND Family Medicine
DX: Z12.31 Encounter for screening mammogram for malignant neoplasm of breast (principal)

== ENCOUNTER 2023-06-23 13:22 | Outpatient (CLI) | payer MEDICARE ==
--- NOTE | 2023-06-24 11:05 | Mammography Report ---
BILATERAL DIGITAL SCREENING MAMMOGRAM 3D/2D: 06/23/2023 CLINICAL: Routine screening. Comparison is made to exams dated: 06/04/2022 mammogram, 10/06/2020 mammogram, 08/23/2018 mammogram, 02/18/2017 mammogram, 05/15/2015 mammogram, and 09/30/2013 mammogram - [facility]. Both breasts are heterogeneously dense, which may obscure small masses (category c / 51-75% glandular tissue). There are benign diffuse calcifications in both breasts. No significant masses, calcifications, or other findings are seen in either breast. There has been no significant interval change. IMPRESSION: BENIGN There is no mammographic evidence of malignancy. A 1 year screening mammogram is recommended. Based on the Tyrer Cuzick model (a risk assessment model) the patients lifetime risk is 10.4% and he r 10 year risk is 5.9%. According to the ACR, ACS, and NCCN guidelines, an annual breast MRI exam [place] with mammogram is recommended if the patients lifetime risk is 20% or greater. This exam was interpreted at Station ID: [id number]. NOTE: For mammograms, a report in lay terms will be sent to the patient. Approximately 15% of breast malignancies will not be visualized mammographically. In the management of a palpable breast mass, a negative mammogram must not discourage biopsy of a clinically suspicious lesion. Electronically Signed By: Lima dyer/miguel ángel:06/23/2023 16:21:03 letter sent: No_Letter ACR BI-RADS Category 2: Benign Finding(s) 3342F PARENCHYMAL PATTERN: (D) - The breast(s) demonstrate(s) heterogeneously dense fibroglandular parmeeray ma. BI-RADS CATEGORY: (2) - 2 Mammogram [id number] 1 year screening LATERALITY: (B)
== END 2023-06-23 13:23 | disposition home or self-care (01) ==
LOC: DI 13:22
DX: Z12.31 Encounter for screening mammogram for malignant neoplasm of breast (principal); R92.333 Mammographic heterogeneous density, bilateral breasts